=== PATIENT | male | born 1990 | race African-American/Black ===

== ENCOUNTER 2017-06-18 22:50 | Emergency (ER) | payer OTHER ==
[2017-06-18] MEDS: HYDROcodone/APAP 5/325MG 1 TAB TABLET PO ×2 (23:30)
[2017-06-19] MEDS: IPRATRPIUM/ALBUTEROL 0.5/2.5MG 3 ML NEBU. NEB ×2 (00:03)
[2017-06-19] MEDS: BENZONATATE 100 MG CAPSULE. PO ×2 (00:21)
[2017-06-19] MEDS: IBUPROFEN 800 MG TABLET. PO ×2 (00:22)
== END 2017-06-19 01:00 | disposition home or self-care (01) ==
LOC: ER 22:50
DX: M94.0 Chondrocostal junction syndrome [Tietze] (principal); J06.9 Acute upper respiratory infection, unspecified
CPT/HCPCS: 71045; 93005; 94640; 99284-25; J7620

== ENCOUNTER 2017-06-21 04:31 | Emergency (ER) | payer OTHER ==
[2017-06-21] MEDS: AZITHROMYCIN 250 MG TABLET. PO ×2 (05:02)
[2017-06-21] MEDS: predniSONE 20 MG TABLET PO ×2 (05:02)
[2017-06-21] MEDS: IPRATRPIUM/ALBUTEROL 0.5/2.5MG 3 ML NEBU. NEB ×2 (05:09)
== END 2017-06-21 05:30 | disposition home or self-care (01) ==
LOC: ER 04:31
DX: J40 Bronchitis, not specified as acute or chronic (principal)
CPT/HCPCS: 71046; 94640; 99284; J7512; J7620; Q0144

== ENCOUNTER 2017-06-25 13:50 | Emergency (ER) | payer OTHER ==
[2017-06-25] MEDS: IPRATRPIUM/ALBUTEROL 0.5/2.5MG 3 ML NEBU. NEB ×2 (16:25)
== END 2017-06-25 16:47 | disposition home or self-care (01) ==
LOC: ER 13:50
DX: J20.9 Acute bronchitis, unspecified (principal); K08.89 Other specified disorders of teeth and supporting structures
CPT/HCPCS: 71046; 94640; 99284; J7620

== ENCOUNTER 2018-02-25 21:32 | Emergency (ER) | payer OTHER ==
[~2018-02-25] VITALS: Ht 177.8 cm; Wt 90.7 kg
[~2018-02-25 21:32] MED LIST: AZIT250T PO; BENZ100C PO; FLUT9.9S NS; IBUP-1007 PO; PRED50TA PO; PROAIR HFA8.5 GM INH; VENTOLIN HFA18 GM INH
[2018-02-25] MEDS ORDERED: predniSONE 10 MG TABLET PO ONE (22:15)
[2018-02-25] MEDS ORDERED: IPRATRPIUM/ALBUTEROL 0.5/2.5MG 3 ML NEBU. NEB ONE (22:15)
--- NOTE | 2018-02-25 23:34 | RAD ---
PROCEDURE: CHEST PA LATERAL CLINICAL INDICATION: ANTERIOR CHEST PAIN X2 DAYS. PT RECENTLY DIAGNOSED WITH BRONCHITIS COMPARISON: 06/25/2017 FINDINGS: Heart is normal in size. Mild peribronchial wall thickening is seen. No focal consolidation. No pneumothorax or pleural effusion. Visualized bony thorax within normal limits. IMPRESSION: Findings of mild bronchitis. Electronically signed by: Wilver Milton DO (02/25/2018 11:31 PM) [facility]
[2018-02-25] MEDS ORDERED: PRED50TA PO (23:43)
--- NOTE | 2018-02-25 23:44 | PHYS DOC ---
Past Medical History Past Medical History: Bronchitis, Other Additional Past Medical Histor: DEVELOPMENTAL DELAY Past Surgical History: No Surgical History Alcohol Use: None Drug Use: None Adult General Chief Complaint Chief Complaint: CHEST PAIN HPI HPI Patient is a 27 year old male who presents with stating that he's had a cough for a while cannot give me exact time when asked and has mid chest pain and chest tightness, sinus congestion and a cough with mucus production but states he does not know a days. Patient denies any current fever. Patient states he is slightly short of air and seems very sleepy. Patient is easily arousable. Patient's vital signs are 94 heart rate, 100% on room air, 120/75, 14 respirations. Patient states he takes no medications daily and has no past medical history. Patient states he has no known drug allergies. Review of Systems Review of Systems Constitutional: Denies fever or chills [] Eyes: Denies change in visual acuity, redness, or eye pain [] HENT: Nasal congestion. Denies sore throat [] Respiratory: Cough or shortness of breath [] Cardiovascular: Mid chest pain GI: Denies abdominal pain, nausea, vomiting, bloody stools or diarrhea [] : Denies dysuria or hematuria [] Musculoskeletal: Denies back pain or joint pain [] Integument: Denies rash or skin lesions [] Neurologic: Denies headache, focal weakness or sensory changes [] Endocrine: Denies polyuria or polydipsia [] All other systems were reviewed and found to be within normal limits, except as documented in this note. Current Medications Current Medications Current Medications Medications (Trade) Dose Ordered Sig/Marie Start Time Stop Time Status Last Admin Dose Admin Albuterol/ Ipratropium (Duoneb) 3 ml 1X ONCE 02/25/18 22:15 02/25/18 22:16 DC 02/25/18 22:18 3 ML Prednisone (Prednisone) 50 mg 1X ONCE 02/25/18 22:15 02/25/18 22:16 DC 02/25/18 22:42 50 MG Allergies Allergies Allergies Coded Allergies Type Severity Reaction Last Updated Verified No Known Drug Allergies 03/03/16 No Physical Exam Physical Exam Constitutional: Well developed, well nourished, no acute distress, non-toxic appearance. [] HENT: Normocephalic, atraumatic, bilateral external ears normal, oropharynx moist, no oral exudates, nose normal. [] Eyes: PERRLA, EOMI, conjunctiva normal, no discharge. [] Neck: Normal range of motion, no tenderness, supple, no stridor. [] Cardiovascular:Heart rate regular rhythm, no murmur [] Lungs & Thorax: Bilateral upper breath sounds clear to auscultation, Lower lungs lobes diminished.[] Abdomen: Bowel sounds normal, soft, no tenderness, no masses, no pulsatile masses. [] Skin: Warm, dry, no erythema, no rash. [] Back: No tenderness, no CVA tenderness. [] Extremities: No tenderness, no cyanosis, no clubbing, ROM intact, no edema. [] Neurologic: Alert and oriented X 3, normal motor function, normal sensory function, no focal deficits noted. [] Psychologic: Affect normal, judgement normal, mood normal. [] Current Patient Data Vital Signs Vital Signs Date Time Temp Pulse Resp B/P (MAP) Pulse Ox O2 Delivery O2 Flow Rate FiO2 02/25/18 22:37 84 16 128/85 (99) 98 Room Air 02/25/18 21:34 97.7 97.7 EKG EKG [] Radiology/Procedures Radiology/Procedures Chest xray Impressions: No acute findings and read by Dr Jara Course & Med Decision Making Course & Med Decision Making Patient is a 27 year old male who presents with stating that he's had a cough for a while cannot give me exact time when asked and has mid chest pain and chest tightness, sinus congestion and a cough with mucus production but states he does not know a collar days. Patient denies any current fever. Patient states he is slightly short of air and seems very sleepy. Patient is easily arousable. Patient's vital signs are 94 heart rate, 100% on room air, 120/75, 14 respirations. Patient states he takes no medications daily and has no past medical history. Patient states he has no known drug allergies. He is neurologically intact and alert and oriented. Patient answers all questions appropriately and speaks in full clear sentences. Skin is pink warm and dry. He has no extremity edema and denies any nausea, vomiting, numbness or tingling, or diarrhea. Patient denied any sinus tenderness but does have sinus congestion. Patient does have postnasal drip. Throat is pink and without exudates. Ears tympanic bilaterally are pearly white. Chest x-ray shows no acute findings and was read by Dr Jara. Patient had a breathing treatment in the ED and prednisone states he is feeling better. We'll send patient home with a prescription for 4 more days of prednisone and follow-up with his primary care provider. Dragon Disclaimer Dragon Disclaimer This electronic medical record was generated, in whole or in part, using a voice recognition dictation system. Departure Departure Impression: Primary Impression: Cough Disposition: HOME, SELF-CARE Condition: STABLE Referrals: SHAE LIN MD (PCP) Patient Instructions: Cough, Adult Additional Instructions: Follow up with your primary care. Scripts Prednisone (PREDNISONE) 50 Mg Tablet 1 TAB PO DAILY, #4 TAB Prov: HUNTER CUNNINGHAM APRN 02/25/18 HUNTER CUNNINGHAM APRN Feb 25, 2018 23:44
[2018-02-26] VITALS: BP 138/66
--- NOTE | 2018-02-26 07:20 | EKG ---
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
== END 2018-02-26 00:05 | disposition home or self-care (01) ==
LOC: ER 21:32
DX: R05 Cough (principal)
CPT/HCPCS: 71046; 93005; 94640; 99284; J7512; J7620

== ENCOUNTER 2018-07-04 22:57 | Emergency (ER) | payer OTHER ==
[~2018-07-04] VITALS: Ht 172.7 cm; Wt 90.7 kg
[~2018-07-04 22:57] MED LIST changes: +ALBU2.5V8 INH; -PROAIR HFA8.5 GM INH
[2018-07-04] MEDS ORDERED: IV NORMAL SALINE 1000ML BAG 1,000 ML IV SCH (23:30)
[2018-07-04] MEDS ORDERED: ASPIRIN CHEWABLE 81 MG TABLET. PO ONE (23:45)
[2018-07-05 00:03] LABS: BASO # 0.1 x10^3/uL (0.0-0.2); BASO % 1 % (0-3); EOS # 0.3 x10^3/uL (0.0-0.7); EOS % 3 % (0-3); HEMATOCRIT 47.7 % (39.0-53.0); LYMPH # 1.8 x10^3/uL (1.0-4.8); LYMPH % 20 % (24-48); MEAN CORPUSCULAR HEMOGLOBIN 29 pg (25-35); MEAN CORPUSCULAR HGB CONC 34 g/dL (31-37); MEAN CORPUSCULAR VOLUME 86 fL (79-100); MONO # 1.1 x10^3/uL (0.0-1.1); MONO % 12 % (0-9); NEUT # 5.8 x10^3uL (1.8-7.7); NEUT % 64 % (31-73); PLATELET COUNT 161 x10^3/uL (140-400); RED BLOOD COUNT 5.54 x10^6/uL (4.30-5.70); RED CELL DISTRIBUTION WIDTH 14.7 % (11.5-14.5)
[2018-07-05 00:12] LABS: CREATININE 1.1 mg/dL (0.7-1.3); GFR 95.1; POTASSIUM 3.9 mmol/L (3.5-5.1)
[2018-07-05 00:18] LABS: ALBUMIN 3.7 g/dL (3.4-5.0); ALBUMIN/GLOBULIN RATIO 0.8 (1.0-1.7); MAGNESIUM 2.1 mg/dL (1.8-2.4); TOTAL BILIRUBIN 0.3 mg/dL (0.2-1.0); TOTAL PROTEIN 8.1 g/dL (6.4-8.2)
--- NOTE | 2018-07-05 00:26 | PHYS DOC ---
Past Medical History Past Medical History: Bronchitis, Other Additional Past Medical Histor: DEVELOPMENTAL DELAY Past Surgical History: No Surgical History Alcohol Use: None Drug Use: None Adult General Chief Complaint Chief Complaint: CHEST PAIN HPI HPI Patient is a 28-year-old male who presents with complaint of midsternal chest pain that started yesterday. Patient states that he had been out at [employer] and while there his pain had gotten much worse and so had called 911. Patient rates his pain to be an 8 out of 10 and describes pain as being sharp and stabbing in nature. He states the pain is worsened with deep breathing. He denies any nausea, vomiting or diaphoresis. He also denies any fever. He does indicate that he has had a cough that is been productive of clear sputum recently. Review of Systems Review of Systems Constitutional: Denies fever or chills [] Respiratory: Complains of cough without shortness of breath [] Cardiovascular: No additional information not addressed in HPI [] GI: Denies abdominal pain, nausea, vomiting or diarrhea [] Musculoskeletal: Denies back pain or joint pain [] Integument: Denies rash or skin lesions [] Neurologic: Denies headache, focal weakness or sensory changes [] All other systems were reviewed and found to be within normal limits, except as documented in this note. Current Medications Current Medications Current Medications Medications (Trade) Dose Ordered Sig/Marie Start Time Stop Time Status Last Admin Dose Admin Aspirin (Children'S Aspirin) 324 mg 1X ONCE 07/04/18 23:45 07/04/18 23:46 DC 07/05/18 00:03 324 MG Sodium Chloride 1,000 ml @ 1,000 mls/hr Q1H 07/04/18 23:30 07/05/18 00:29 DC 07/05/18 00:03 1,000 MLS/HR Allergies Allergies Allergies Coded Allergies Type Severity Reaction Last Updated Verified No Known Drug Allergies 03/03/16 No Physical Exam Physical Exam Constitutional: Well developed, well nourished, no acute distress, non-toxic appearance. [] HENT: Normocephalic, atraumatic, bilateral external ears normal, oropharynx moist, no oral exudates, nose normal. [] Eyes: PERRLA, EOMI, conjunctiva normal, no discharge. [] Neck: Normal range of motion, no tenderness, supple, no stridor. [] Cardiovascular: Regular rate and rhythm[] Lungs & Thorax: Bilateral breath sounds clear to auscultation [] Abdomen: Bowel sounds normal, soft, no tenderness. [] Skin: Warm, dry, no erythema, no rash. [] Extremities: No tenderness, no cyanosis, no clubbing, ROM intact, no edema. [] Neurologic: Alert and oriented X 3, no focal deficits noted. [] Current Patient Data Vital Signs Vital Signs Date Time Temp Pulse Resp B/P (MAP) Pulse Ox O2 Delivery O2 Flow Rate FiO2 07/04/18 22:57 98.4 82 20 137/84 (101) 98 Room Air 98.4 Lab Values Laboratory Tests Test 07/04/18 23:54 White Blood Count 9.0 x10^3/uL (4.0-11.0) Red Blood Count 5.54 x10^6/uL (4.30-5.70) Hemoglobin 16.0 g/dL (13.0-17.5) Hematocrit 47.7 % (39.0-53.0) Mean Corpuscular Volume 86 fL (79-100) Mean Corpuscular Hemoglobin 29 pg (25-35) Mean Corpuscular Hemoglobin Concent 34 g/dL (31-37) Red Cell Distribution Width 14.7 % (11.5-14.5) H Platelet Count 161 x10^3/uL (140-400) Neutrophils (%) (Auto) 64 % (31-73) Lymphocytes (%) (Auto) 20 % (24-48) L Monocytes (%) (Auto) 12 % (0-9) H Eosinophils (%) (Auto) 3 % (0-3) Basophils (%) (Auto) 1 % (0-3) Neutrophils # (Auto) 5.8 x10^3uL (1.8-7.7) Lymphocytes # (Auto) 1.8 x10^3/uL (1.0-4.8) Monocytes # (Auto) 1.1 x10^3/uL (0.0-1.1) Eosinophils # (Auto) 0.3 x10^3/uL (0.0-0.7) Basophils # (Auto) 0.1 x10^3/uL (0.0-0.2) D-Dimer (Alanis) < 0.27 ug/mlFEU Sodium Level 142 mmol/L (136-145) Potassium Level 3.9 mmol/L (3.5-5.1) Chloride Level 103 mmol/L (98-107) Carbon Dioxide Level 31 mmol/L (21-32) Anion Gap 8 (6-14) Blood Urea Nitrogen 16 mg/dL (8-26) Creatinine 1.1 mg/dL (0.7-1.3) Estimated GFR (Cockcroft-Gault) 95.1 BUN/Creatinine Ratio 15 (6-20) Glucose Level 95 mg/dL (70-99) Calcium Level 9.0 mg/dL (8.5-10.1) Magnesium Level 2.1 mg/dL (1.8-2.4) Total Bilirubin 0.3 mg/dL (0.2-1.0) Aspartate Amino Transferase (AST) 19 U/L (15-37) Alanine Aminotransferase (ALT) 24 U/L (16-63) Alkaline Phosphatase 69 U/L (46-116) Troponin I Quantitative < 0.017 ng/mL (0.000-0.055) DI-Bvb-E-Type Natriuretic Peptide 10 pg/mL (0-124) Total Protein 8.1 g/dL (6.4-8.2) Albumin 3.7 g/dL (3.4-5.0) Albumin/Globulin Ratio 0.8 (1.0-1.7) L Laboratory Tests 07/04/18 23:54 Laboratory Tests 07/04/18 23:54 EKG EKG [] Interpretation Time: EKG demonstrates normal sinus rhythm with no ST segment abnormalities. Radiology/Procedures Radiology/Procedures [] Impressions: Chest x-ray demonstrates no acute process. Course & Med Decision Making Course & Med Decision Making Pertinent Labs and Imaging studies reviewed. (See chart for details) [] Dragon Disclaimer Dragon Disclaimer This electronic medical record was generated, in whole or in part, using a voice recognition dictation system. Departure Departure Impression: Primary Impression: Bronchitis, acute Additional Impression: Costochondritis Disposition: 01 HOME, SELF-CARE Condition: STABLE Referrals: SHAE LIN MD (PCP) Patient Instructions: Acute Bronchitis, Costochondritis Scripts Ketorolac Tromethamine (KETOROLAC TROMETHAMINE) 10 Mg Tablet 1 TAB PO PRN Q6HRS PRN for PAIN, #20 TAB Prov: JOSELINE YOU Jr. DO 07/05/18 Azithromycin (ZITHROMAX) 250 Mg Tablet 1 PKG PO UD, #6 TAB Prov: JOSELINE YOU Jr. DO 07/05/18 Problem Qualifiers Primary Impression: Bronchitis, acute Bronchitis organism: unspecified organism Qualified Codes: J20.9 - Acute bronchitis, unspecified JOSELINE YOU Jr. DO Jul 05, 2018 00:26
[2018-07-05] MEDS ORDERED: KETO10TA PO (00:50)
[2018-07-05] MEDS ORDERED: AZIT250T PO (00:50)
[2018-07-05 01:00] VITALS: BP 132/76
--- NOTE | 2018-07-05 02:15 | RAD ---
EXAM: AP View of the chest DATE: 07/04/2018 11:16 PM INDICATION: CHEST PAIN COMPARISON: 06/25/2018, 02/25/2018 FINDINGS: The heart is not enlarged. Mediastinal and hilar contours are normal. No focal parenchymal airspace opacity. No pleural effusion or pneumothorax. IMPRESSION: 1. No radiographic evidence for acute cardiopulmonary process. Electronically signed by: Montana Bright MD (07/05/2018 2:12 AM) [facility]
--- NOTE | 2018-07-05 10:49 | EKG ---
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
== END 2018-07-05 01:12 | disposition home or self-care (01) ==
LOC: ER 22:57
DX: M94.0 Chondrocostal junction syndrome [Tietze] (principal); J20.9 Acute bronchitis, unspecified
CPT/HCPCS: 36415; 71045; 80053; 83735; 83880; 84484; 85025; 85379; 93005; 99284; J7030; 96360

== ENCOUNTER 2018-07-07 23:32 | Emergency (ER) | payer OTHER ==
[~2018-07-07] VITALS: Ht 172.7 cm; Wt 90.7 kg
[~2018-07-07 23:32] MED LIST changes: +KETO10TA PO
[2018-07-07 23:42] VITALS: BP 130/76
--- NOTE | 2018-07-07 23:54 | PHYS DOC ---
Past Medical History Past Medical History: Bronchitis, Other Additional Past Medical Histor: DEVELOPMENTAL DELAY Past Surgical History: No Surgical History Alcohol Use: None Drug Use: None Adult General Chief Complaint Chief Complaint: CHEST PAIN-CARDIAC NATURE HPI HPI Patient is a 28-year-old male who presents to the emergency department for evaluation. He states he has had a nonproductive cough for the past several days and is having anterior chest discomfort, worse with coughing and palpation. He denies any fevers or chills, dizziness or lightheadedness. He denies any pleuritic pain. He was seen in the emergency department 3 days ago for the same symptoms and had a workup which was largely unremarkable, including a chest x-ray and a d-dimer, which were negative. There are no alleviating or exacerbating factors to the patient's symptoms, except as noted above. Review of Systems Review of Systems Constitutional: Denies fever or chills [] Eyes: Denies change in visual acuity, redness, or eye pain [] HENT: Denies nasal congestion or sore throat [] Respiratory: Denies pleuritic pain or shortness of breath [] Cardiovascular: No additional information not addressed in HPI [] GI: Denies abdominal pain, nausea, vomiting, bloody stools or diarrhea [] : Denies dysuria or hematuria [] Musculoskeletal: Denies back pain or joint pain [] Integument: Denies rash or skin lesions [] Neurologic: Denies headache, focal weakness or sensory changes [] Endocrine: Denies polyuria or polydipsia [] All other systems were reviewed and found to be within normal limits, except as documented in this note. Current Medications Current Medications Current Medications Medications (Trade) Dose Ordered Sig/Marie Start Time Stop Time Status Last Admin Dose Admin Ketorolac Tromethamine (Toradol 30mg Vial) 30 mg 1X ONCE 07/08/18 00:30 07/08/18 00:31 DC 07/07/18 23:59 30 MG Allergies Allergies Allergies Coded Allergies Type Severity Reaction Last Updated Verified No Known Drug Allergies 03/03/16 No Physical Exam Physical Exam PHYSICAL EXAM: CONSTITUTIONAL: Well developed, well nourished HEAD: normocephalic, atraumatic EENT: PERRL, EOMI. Conjunctivae normal color, sclerae non-icteric; moist mucous membranes. NECK: Supple, non-tender; no meningismus. LUNGS: Lungs CTA, breathing even and unlabored. Normal air movement. HEART: Regular rate and rhythm, no murmur CHEST: No deformity; palpation of the anterior chest wall reproduces the patient 's pain ABDOMEN: The abdomen is soft, and non-tender, no masses or bruits. EXTREM: Normal ROM; no deformity, no calf tenderness. Normal pulses palpable in all extremities. There is no pedal edema. SKIN: No rash; no diaphoresis NEURO: Alert; normal speech, mildly delayed cognition consistent with developmental delay; CN's grossly intact; strength grossly intact without focal deficit. BACK: No CVA TTP. Current Patient Data Vital Signs Vital Signs Date Time Temp Pulse Resp B/P (MAP) Pulse Ox O2 Delivery O2 Flow Rate FiO2 07/07/18 23:42 97.8 79 14 130/76 (94) 98 Room Air 97.8 EKG EKG [Normal sinus rhythm with a normal rate, normal axis, normal intervals, there are no acute ischemic ST/T changes.] Radiology/Procedures Radiology/Procedures []ER physician preliminary chest x-ray interpretation: No acute disease. Course & Med Decision Making Course & Med Decision Making Pertinent diagnostic and Imaging studies reviewed. (See chart for details) [12:35 AM:Patient remains stable. I discussed test results, the need for close follow-up, and return precautions.] Dragon Disclaimer Dragon Disclaimer This electronic medical record was generated, in whole or in part, using a voice recognition dictation system. Departure Departure Impression: Primary Impression: Chest pain Additional Impression: Cough Disposition: 01 HOME, SELF-CARE Condition: STABLE Referrals: SHAE LIN MD (PCP) Patient Instructions: Chest Wall Pain, Cough, Adult, Musculoskeletal Pain Additional Instructions: Ibuprofen 400-600 mg every 6 hours. Problem Qualifiers PAUL ABDULLAHI MD Jul 07, 2018 23:54
[2018-07-08] MEDS ORDERED: KETOROLAC 30 MG/ML VIAL. IV ONE (00:30)
--- NOTE | 2018-07-08 01:15 | RAD ---
Two-view chest dated 07/08/2018. Comparison made to 07/04/2018. CLINICAL INDICATION: Chest pain. Cough. FINDINGS: PA and lateral views were obtained. Heart and mediastinal contours are stable. Lungs are clear without focal consolidation. Vascular interstitium within normal limits. No pleural effusion or pneumothorax. IMPRESSION: No acute radiographic abnormality. Electronically signed by: Ruy Fierro MD (07/08/2018 1:13 AM) [facility]
--- NOTE | 2018-07-08 07:19 | EKG ---
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
== END 2018-07-08 00:55 | disposition home or self-care (01) ==
LOC: ER 23:32
DX: R07.89 Other chest pain (principal); R05 Cough
CPT/HCPCS: 71046; 93005; 96374; 99283; J1885

== ENCOUNTER 2018-07-15 01:09 | Emergency (ER) | payer OTHER ==
[~2018-07-15] VITALS: Ht 172.7 cm; Wt 90.7 kg
[2018-07-15] MEDS ORDERED: ALBU2.5V8 INH (01:49)
[2018-07-15 02:00] VITALS: BP 137/82
[2018-07-15] MEDS ORDERED: ACETAMINOPHEN 500 MG TABLET PO ONE (02:00)
--- NOTE | 2018-07-15 05:02 | PHYS DOC ---
Past Medical History Past Medical History: Bronchitis, Other Additional Past Medical Histor: DEVELOPMENTAL DELAY Past Surgical History: No Surgical History Alcohol Use: None Drug Use: None Adult General Chief Complaint Chief Complaint: CHEST PAIN HPI HPI Patient is a 28 year old m who p/w chest pain seen twice in here twice already in the last week or so for the same complaint he says he has been coughing a lot he feels a sharp chest pain in the center of her chest when he coughs. Of note the patient does appear to have some level of developmental delay. Patient really is denying any shortness of breath he is wondering if he could may be still work he would like to keep working. has Review of Systems Review of Systems Constitutional: Denies fever or chills [] Eyes: Denies change in visual acuity, redness, or eye pain [] HENT: pos nasal congestion Musculoskeletal: Denies back pain or joint pain [] Integument: Denies rash or skin lesions [] Neurologic: Denies headache, focal weakness or sensory changes [] Endocrine: Denies polyuria or polydipsia [] All other systems were reviewed and found to be within normal limits, except as documented in this note. Current Medications Current Medications Current Medications Medications (Trade) Dose Ordered Sig/Marie Start Time Stop Time Status Last Admin Dose Admin Acetaminophen (Tylenol) 1,000 mg 1X ONCE 07/15/18 02:00 07/15/18 02:01 DC 07/15/18 02:12 1,000 MG Allergies Allergies Allergies Coded Allergies Type Severity Reaction Last Updated Verified No Known Drug Allergies 03/03/16 No Physical Exam Physical Exam Constitutional: Well developed, well nourished, no acute distress, non-toxic appearance. [] HENT: Normocephalic, atraumatic, bilateral external ears normal, oropharynx moist, no oral exudates, nose normal. [] Eyes: PERRLA, EOMI, conjunctiva normal, no discharge. [] Neck: Normal range of motion, no tenderness, supple, no stridor. [] Cardiovascular:Heart rate regular rhythm, no murmur [] Lungs & Thorax: Bilateral breath sounds clear to auscultation []chest wall tenderness is reproducible on the left chest wall border. Abdomen: Bowel sounds normal, soft, no tenderness, no masses, no pulsatile masses. [] Skin: Warm, dry, no erythema, no rash. [] Back: No tenderness, no CVA tenderness. [] Extremities: No tenderness, no cyanosis, no clubbing, ROM intact, no edema. [] Neurologic: Alert and oriented X 3, normal motor function, normal sensory function, no focal deficits noted. [] Psychologic: Affect normal, judgement normal, mood normal. [] Current Patient Data Vital Signs Vital Signs Date Time Temp Pulse Resp B/P (MAP) Pulse Ox O2 Delivery O2 Flow Rate FiO2 07/15/18 02:00 78 19 137/82 (100) 98 Room Air 07/15/18 01:12 98.1 98.1 EKG EKG []EKG shows a sinus rhythm rate of 77 no acute ischemic changes noted this is essentially normal EKG Radiology/Procedures Radiology/Procedures [] Course & Med Decision Making Course & Med Decision Making Pertinent Labs and Imaging studies reviewed. (See chart for details) []28-year-old male with developmental delay presenting with chest pain pleuritic reproducible associated with cough I suspect bronchitis patient has been here at least twice already in the last week has had negative workup negative EKG troponin d-dimer and chest x-ray some those tests were done more than once I think he is really having reproducible bronchitis symptoms prescription for albuterol was given reassurance was given I tried to explain the patient the diagnosis and the recent workup to the best of my ability he seemed to understand. Dragon Disclaimer Dragon Disclaimer This electronic medical record was generated, in whole or in part, using a voice recognition dictation system. Departure Departure Impression: Primary Impression: Bronchitis Disposition: 01 HOME, SELF-CARE Condition: STABLE Patient Instructions: Bronchitis, [id number] Scripts Albuterol Sulfate (PROAIR HFA INHALER) 8.5 Gm Hfa.aer.ad 1 PUFF INH PRN Q6HRS PRN for SHORTNESS OF BREATH, #1 INHALER 0 Refills Prov: DAVIS HUERTA MD 07/15/18 DAVIS HUERTA MD Jul 15, 2018 05:02
--- NOTE | 2018-07-15 13:12 | EKG ---
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
== END 2018-07-15 02:12 | disposition home or self-care (01) ==
LOC: ER 01:09
DX: J40 Bronchitis, not specified as acute or chronic (principal)
CPT/HCPCS: 93005; 99283

== ENCOUNTER 2018-07-31 23:03 | Emergency (ER) | payer OTHER ==
[~2018-07-31] VITALS: Ht 172.7 cm; Wt 90.7 kg
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
[2018-08-01] MEDS ORDERED: IBUPROFEN 200 MG TABLET. PO ONE (00:45)
[2018-08-01 01:13] VITALS: BP 152/90
--- NOTE | 2018-08-01 03:42 | RAD ---
AP and lateral chest radiographs 08/01/2018 CLINICAL HISTORY: Chest wall pain. Cough. AP and 2 lateral digital radiographs of the chest were obtained. Comparison study is dated 07/08/2018. The cardiac and mediastinal silhouettes are within normal limits in size and configuration. No pulmonary infiltrate is seen. No pleural effusion or pneumothorax is noted. The osseous structures are unchanged. IMPRESSION: No acute abnormality is seen. Electronically signed by: Nash Boles MD (08/01/2018 3:39 AM) [facility]
--- NOTE | 2018-08-01 03:58 | EKG ---
[facility] [address] [place] [address] Test Date: 2018-08-01 Test Time: 00:31:41 Pat Name: ERICA ARORA Department: Room: Gender: M Booky: : 1990 Requested By: ISIDRO DAVENPORT Order Number: [id number] Reading MD: Steven Glaser MD Measurements Intervals [place] Rate: 78 P: 60 MD: 144 QRS: 26 QRSD: 88 T: 12 QT: 374 QTc: 429 Interpretive Statements SINUS RHYTHM NON-SPECIFIC ST/T CHANGES Electronically Signed On 08-04-2018 22:01:37 CDT by Steven Glaser MD
== END 2018-08-01 01:32 | disposition home or self-care (01) ==
LOC: ER 23:03
DX: R07.89 Other chest pain (principal); R05 Cough; K30 Functional dyspepsia
CPT/HCPCS: 71046; 93005; 99283

== ENCOUNTER 2019-01-06 08:24 | Emergency (ER) | payer MEDICAID, OTHER ==
[~2019-01-06] VITALS: Ht 165.1 cm; Wt 90.7 kg
[2019-01-06 08:28] VITALS: BP 136/67
[2019-01-06] MEDS ORDERED: BENZ100C PO (08:47)
--- NOTE | 2019-01-06 08:48 | PHYS DOC ---
Past Medical History Past Medical History: Bronchitis, Other Additional Past Medical Histor: DEVELOPMENTAL DELAY (DESTIN TELLEZ APRN) Past Surgical History: No Surgical History (DESTIN TELLEZ APRN) Alcohol Use: None Drug Use: None (DESTIN TELLEZ APRN) Adult General Chief Complaint Chief Complaint: COUGH HPI HPI Patient is a 28 year old AA male who presents to the ER via EMS with complaints of a productive cough with clear sputum since last night. 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 He denies any pain at this time. ROS PT denies any fever, ear pain, sore throat, SOA, wheezing, headache, runny nose, nausea, vomiting, diarrhea, or abdominal pain. He denies any chest pain or palpitations. All other ROS is neg unless otherwise noted in HPI. (DESTIN TELLEZ APRN) Review of Systems Review of Systems See Above (DESTIN TELLEZ APRN) Allergies Allergies Allergies Coded Allergies Type Severity Reaction Last Updated Verified No Known Drug Allergies 03/03/16 No (DAVIS HUERTA MD) Physical Exam Physical Exam See Above Constitutional: Well developed, well nourished, no acute distress, non-toxic appearance. [] HENT: Normocephalic, atraumatic, bilateral external ears normal, bilateral TMs clear, posterior pharynx normal, oropharynx moist, no oral exudates, nose normal. [] Eyes: PERRLA, EOMI, conjunctiva normal, no discharge. [] Neck: Normal range of motion, no tenderness, supple, no stridor. [] Cardiovascular:Heart rate regular rhythm, no murmur [] Lungs & Thorax: Bilateral breath sounds clear to auscultation [] Skin: Warm, dry, no erythema, no rash. [] Back: No tenderness Extremities: No cyanosis, no clubbing, ROM intact, no edema. [] Neurologic: Alert and oriented X 3, no focal deficits noted. [] Psychologic: Affect normal, judgement normal, mood normal. [] (DESTIN TELLEZ APRN) Current Patient Data Vital Signs Vital Signs Date Time Temp Pulse Resp B/P (MAP) Pulse Ox O2 Delivery O2 Flow Rate FiO2 01/06/19 08:28 98.8 92 16 136/67 (90) 98 Room Air 98.8 (DAVIS HUERTA MD) EKG EKG [] (DESTIN TELLEZ APRN) Radiology/Procedures Radiology/Procedures [] (DESTIN TELLEZ APRN) Course & Med Decision Making Course & Med Decision Making Pertinent Labs and Imaging studies reviewed. (See chart for details) dx: Cough Physical exam is not concerning for pneumonia, strep pharyngitis, sinus infection, bronchitis, or other acute infectious process. Patient was prescribed Tessalon Perles to take as needed for cough. Follow-up with primary care doctor symptoms persist, return to the ER if symptoms worsen. Patient verbalized an understanding of home care, medications, follow-up, and return to ED instructions and was in agreement with the plan of care. [] (DESTIN TELLEZ APRN) Course & Med Decision Making Staff Physician Addendum: I was working in the ER during the course of this patient's visit. I was available for consultation as needed, but I was not directly involved in the care of this patient. (DAVIS HUERTA MD) Dragon Disclaimer Dragon Disclaimer This electronic medical record was generated, in whole or in part, using a voice recognition dictation system. (DESTIN TELLEZ APRN) Departure Departure Impression: Primary Impression: Cough Disposition: 01 HOME, SELF-CARE Condition: STABLE Referrals: SHAE LIN MD (PCP) Patient Instructions: Cough, Adult, [id number] Additional Instructions: Fill prescription(s) and use as directed. Alternate Tylenol or ibuprofen as needed for pain/fever. Increase clear fluids. Avoid airway triggers such as sm megan, fragrance, dust, and pollen. Follow-up with your primary care doctor if symptoms persist, return to the ER if symptoms worsen. Scripts Benzonatate (TESSALON PERLE) 100 Mg Capsule 1 CAP PO TID PRN for COUGH, #21 CAP 0 Refills Prov: DESTIN TELLEZ APRN 01/06/19 DESTIN TELLEZ APRN Jan 06, 2019 08:48 DAVIS HUERTA MD Jan 06, 2019 11:47
== END 2019-01-06 09:10 | disposition home or self-care (01) ==
LOC: ER 08:24
DX: R05 Cough (principal)
CPT/HCPCS: 99283

== ENCOUNTER 2019-03-06 22:14 | Emergency (ER) | payer MEDICAID ==
[~2019-03-06] VITALS: Ht 172.7 cm; Wt 90.7 kg
[2019-03-06 22:14] VITALS: BP 112/59
--- NOTE | 2019-03-06 22:22 | PHYS DOC ---
Past Medical History Past Medical History: Bronchitis, Other Additional Past Medical Histor: DEVELOPMENTAL DELAY Past Surgical History: No Surgical History Alcohol Use: None Drug Use: None Adult General Chief Complaint Chief Complaint: COUGH HPI HPI 28-year-old male presents to the emergency department via EMS with complaints of cough 2 weeks, chest pain 2 days. Worse with cough. Patient denies any shortness breath, nausea, vomiting, fever, does complain of productive cough. Patient denies abdominal pain. Nothing makes pain better. Patient denies tobacco/etoh/drug use Review of Systems Review of Systems Constitutional: Denies fever or chills [] HENT: Denies nasal congestion or sore throat [] Respiratory: cough (productive with yellow/clear) Cardiovascular: No additional information not addressed in HPI [] GI: Denies abdominal pain, nausea, vomiting, bloody stools or diarrhea [] Musculoskeletal: Denies back pain or joint pain [] Integument: Denies rash or skin lesions [] Neurologic: Denies headache, focal weakness or sensory changes [] All other systems were reviewed and found to be within normal limits, except as documented in this note. Current Medications Current Medications Current Medications Medications (Trade) Dose Ordered Sig/Marie Start Time Stop Time Status Last Admin Dose Admin Ketorolac Tromethamine (Toradol Im) 60 mg 1X ONCE 03/06/19 22:30 03/06/19 22:31 DC Allergies Allergies Allergies Coded Allergies Type Severity Reaction Last Updated Verified No Known Drug Allergies 03/03/16 No Physical Exam Physical Exam Constitutional: Well developed, well nourished, no acute distress, non-toxic appearance. [] HENT: Normocephalic, atraumatic, bilateral external ears normal, oropharynx moist, no oral exudates, nose normal. [] Eyes: PERRLA, EOMI, conjunctiva normal, no discharge. [] Cardiovascular:Heart rate regular rhythm, no murmur [] Lungs & Thorax: Bilateral breath sounds clear to auscultation [] Abdomen: Bowel sounds normal, soft, no tenderness, no masses, no pulsatile masses. [] Skin: Warm, dry, no erythema, no rash. [] Back: No tenderness, no CVA tenderness. [] Extremities: No tenderness, no edema. [] Neurologic: Alert and oriented X 3, no focal deficits noted. [] Psychologic: Affect normal, judgement normal, mood normal. [] EKG EKG EKG reviewed from EMS, sinus tachycardia, no evidence of ST elevation appreciated. Interactive time 2223[] Radiology/Procedures Radiology/Procedures Xray without evidence of acute consolidation - wet read 2311 by ER physician[] Course & Med Decision Making Course & Med Decision Making 28-year-old male presents to the emergency department via EMS with complaints of cough 2 weeks, chest pain 2 days. Worse with cough. Patient denies any shortness breath, nausea, vomiting, fever, does complain of productive cough. Patient denies abdominal pain. Nothing makes pain better. Patient denies tobacco/etoh/drug use Pertinent Labs and Imaging studies reviewed. (See chart for details) [] Dragon Disclaimer Dragon Disclaimer This electronic medical record was generated, in whole or in part, using a voice recognition dictation system. Departure Departure Impression: Primary Impression: Cough Additional Impressions: Chest pain Bronchitis Disposition: HOME, SELF-CARE Condition: STABLE Referrals: SHAE LIN MD (PCP) Patient Instructions: Chest Pain (Nonspecific), Cough, Adult, [id number] Additional Instructions: Recommend follow up with PCP 3 - 5 days Return to the ER with worsening symptoms, intractable pain, fever, altered mental status Tylenol/Motrin as needed for pain Take antibiotics as directed Scripts Doxycycline Hyclate (DOXYCYCLINE HYCLATE) 100 Mg Capsule 1 CAP PO BID, #14 CAP Prov: DELPHINE FORD MD 03/06/19 Diclofenac Sodium (DICLOFENAC SODIUM) 50 Mg Tablet.dr 1 TAB PO BID for 5 Days, #10 TAB 1 Refill Prov: DELPHINE FORD MD 03/06/19 Problem Qualifiers Additional Impressions: Chest pain Chest pain type: chest pain on breathing Qualified Codes: R07.1 - Chest pain on breathing DELPHINE FORD MD Mar 06, 2019 22:22
[2019-03-06] MEDS ORDERED: KETOROLAC 60 MG/2 ML VIAL. IM ONE (22:30)
[2019-03-06] MEDS ORDERED: DICL50TA4 PO (23:13)
[2019-03-06] MEDS ORDERED: DOXY100C2 PO (23:13)
--- NOTE | 2019-03-06 23:19 | RAD ---
Study: CHEST AP ONLY Indication: Cough. Chest pain. Comparison: 08/01/2018 Findings: Unremarkable cardiomediastinal silhouette and ondina. No lobar consolidation, pleural effusion or pneumothorax. Unremarkable osseous structures and upper abdomen. Impression: No acute radiographic abnormality of the chest. Electronically signed by: ISRAEL DAVALOS MD (03/06/2019 11:16 PM) [facility]
== END 2019-03-06 23:46 | disposition home or self-care (01) ==
LOC: ER 22:14
DX: J40 Bronchitis, not specified as acute or chronic (principal); R07.9 Chest pain, unspecified
CPT/HCPCS: 71045; 99283

== ENCOUNTER 2019-03-27 21:09 | Emergency (ER) | payer MEDICAID ==
[~2019-03-27] VITALS: Ht 165.1 cm; Wt 90.7 kg
[~2019-03-27 21:09] MED LIST changes: +DICL50TA4 PO; +DOXY100C2 PO
[2019-03-27 21:21] VITALS: BP 157/88
--- NOTE | 2019-03-27 21:32 | PHYS DOC ---
Past Medical History Past Medical History: Bronchitis, Other Additional Past Medical Histor: DEVELOPMENTAL DELAY (HUNTER CUNNINGHAM APRN) Past Surgical History: No Surgical History (HUNTER CUNNINGHAM APRN) Alcohol Use: None Drug Use: None (HUNTER CUNNINGHAM APRN) Attending Signature I have participated in the care of this patient and I have reviewed and agree with all pertinent clinical information above including history, exam, and recommendations. (DELPHINE FORD MD) Adult General Chief Complaint Chief Complaint: COUGH HPI HPI Patient is a 29 year old male who presents with sinus congestion and cough. Patient states it is a dry cough and coughing anything up. Patient states the cough started yesterday but he's had sinus congestion for the last 3 days. Patient states when he coughs is beginning to hurt his chest. Patient states he has been around others that have the same symptoms. Patient states he has cold chills but denies fever. (HUNTER CUNNINGHAM APRN) Review of Systems Review of Systems Constitutional: fever or chills [] HENT: nasal congestion or sore throat. Facial pain. [] Respiratory: cough or denies shortness of breath [] All other systems were reviewed and found to be within normal limits, except as documented in this note. (HUNTER CUNNINGHAM APRN) Allergies Allergies Allergies Coded Allergies Type Severity Reaction Last Updated Verified No Known Drug Allergies 03/03/16 No (DELPHINE FORD MD) Physical Exam Physical Exam Constitutional: Well developed, well nourished, no acute distress, non-toxic appearance. [] HENT: Normocephalic, atraumatic, bilateral external ears normal, oropharynx moist, no oral exudates, nose normal. Nasal congestion, throat reddened, maxillary sinus tenderness. [] Eyes: PERRLA, EOMI, conjunctiva normal, no discharge. [] Neck: Normal range of motion, no tenderness, supple, no stridor. [] Cardiovascular:Heart rate regular rhythm, no murmur [] Lungs & Thorax: Bilateral breath sounds clear to auscultation [] Abdomen: Bowel sounds normal, soft, no tenderness, no masses, no pulsatile masses. [] Skin: Warm, dry, no erythema, no rash. [] Neurologic: Alert and oriented X 3, normal motor function, normal sensory function, no focal deficits noted. [] Psychologic: Affect normal, judgement normal, mood normal. [] (HUNTER CUNNINGHAM APRN) Current Patient Data Vital Signs Vital Signs Date Time Temp Pulse Resp B/P (MAP) Pulse Ox O2 Delivery O2 Flow Rate FiO2 03/27/19 21:21 98.0 86 16 157/88 (111) 99 Room Air 98.0 (DELPHINE FORD MD) EKG EKG [] (HUNTER CUNNINGHAM APRN) Radiology/Procedures Radiology/Procedures [] (HUNTER CUNNINGHAM APRN) Course & Med Decision Making Course & Med Decision Making Alert and oriented. Lungs are clear to auscultation all lobes. Throat is reddened but no exudates or swelling. He has nasal congestion. Tympanic is pearly white. Ambulatory with a steady gait. Skin pink warm and dry. Mucous are membranes moist. Vital signs within normal limits. Speaks in full clear sentences. Abdomen is soft and nontender. Patient denies shortness of breath, dizziness, headache, abdominal pain, nausea, vomiting, diarrhea, visual changes. Patient rates his discomfort at a 3 out of 10. Patient does have maxillary sinus tenderness with palpation. (HUNTER CUNNINGHAM APRN) Dragon Disclaimer Dragon Disclaimer This electronic medical record was generated, in whole or in part, using a voice recognition dictation system. (HUNTER CUNNINGHAM APRN) Departure Departure Impression: Primary Impression: Sinusitis Additional Impression: Cough Disposition: 01 HOME, SELF-CARE Condition: STABLE Referrals: NO PCP (PCP) Patient Instructions: Cough, Adult, Sinusitis Additional Instructions: Follow-up with primary care provider. Take medication as prescribed. Drink plenty of fluids. Take ibuprofen or Tylenol to help with pain. Scripts Benzonatate (TESSALON PERLE) 100 Mg Capsule 1 CAP PO TID, #30 CAP Prov: HUNTER CUNNINGHAM APRN 03/27/19 Azithromycin (AZITHROMYCIN TABLET) 250 Mg Tablet 1 PKG PO UD for 5 Days, #6 TAB 0 Refills 2 the first day followed by 1 for days 2-5 Prov: HUNTER CUNNINGHAM APRN 03/27/19 Problem Qualifiers Primary Impression: Sinusitis Sinusitis location: maxillary Chronicity: acute Recurrence: non- recurrent Qualified Codes: J01.00 - Acute maxillary sinusitis, unspecified HUNTER CUNNINGHAM APRN Mar 27, 2019 21:32 DELPHINE FORD MD Mar 28, 2019 17:31
[2019-03-27] MEDS ORDERED: BENZ100C PO (21:37)
[2019-03-27] MEDS ORDERED: AZIT250T6 PO (21:37)
== END 2019-03-27 21:49 | disposition home or self-care (01) ==
LOC: ER 21:09
DX: J01.00 Acute maxillary sinusitis, unspecified (principal)
CPT/HCPCS: 99283

== ENCOUNTER 2019-04-13 18:17 | Emergency (ER) | payer MEDICAID ==
[~2019-04-13] VITALS: Ht 165.1 cm; Wt 90.7 kg
[2019-04-13 18:17] VITALS: BP 132/73
[~2019-04-13 18:17] MED LIST changes: +AZIT250T6 PO
--- NOTE | 2019-04-13 23:56 | PHYS DOC ---
Past Medical History Past Medical History: Bronchitis, Other Additional Past Medical Histor: DEVELOPMENTAL DELAY Past Surgical History: No Surgical History Alcohol Use: None Drug Use: None Adult General Chief Complaint Chief Complaint: COUGH HPI HPI Patient is a 29 year old history of developmental delay who presents with nonproductive cough with rhinorrhea since yesterday. No history of asthma. Denies wheezing. No fever chills, nausea vomiting or sweats. Patient was at work when he called the ambulance when symptoms began. [] Review of Systems Review of Systems Symptoms as per history of present illness. All other review symptoms are negative. All other systems were reviewed and found to be within normal limits, except as documented in this note. Allergies Allergies Allergies Coded Allergies Type Severity Reaction Last Updated Verified No Known Drug Allergies 03/03/16 No Physical Exam Physical Exam Constitutional: Well developed, well nourished, no acute distress, non-toxic appearance. [] HENT: Normocephalic, atraumatic, bilateral external ears normal, oropharynx moist, no oral exudates, nose normal. [] Eyes: PERRLA, EOMI, conjunctiva normal, no discharge. [] Neck: Normal range of motion, no tenderness, supple, no stridor. [] Cardiovascular:Heart rate regular rhythm, no murmur [] Lungs & Thorax: Bilateral breath sounds clear to auscultation [] Abdomen: Bowel sounds normal, soft. [] Skin: Warm, dry, no erythema, no rash. [] Back: No tenderness, no CVA tenderness. [] Extremities: No tenderness, no cyanosis, no clubbing, ROM intact, no edema. [] Neurologic: Alert and oriented X 3, normal motor function, normal sensory function, no focal deficits noted. [] Psychologic: Affect normal, judgement normal, mood normal. [] Current Patient Data Vital Signs Vital Signs Date Time Temp Pulse Resp B/P (MAP) Pulse Ox O2 Delivery O2 Flow Rate FiO2 04/13/19 18:17 97.4 80 16 132/73 (92) 100 Room Air 97.4 EKG EKG [] Radiology/Procedures Radiology/Procedures [] Course & Med Decision Making Course & Med Decision Making Pertinent Labs and Imaging studies reviewed. (See chart for details) [Patient reassured. Recommend the port of care and follow-up with PCP] Vel Disclaimer Vel Disclaimer This electronic medical record was generated, in whole or in part, using a voice recognition dictation system. Departure Departure Impression: Primary Impression: Acute viral bronchitis Disposition: HOME, SELF-CARE Condition: GOOD Patient Instructions: Bronchitis, [id number] Additional Instructions: Take Nyquil or benadryl for cough. Follow up with your PCP as needed ARMANDO OZUNA DO Apr 13, 2019 23:56
[2019-04-14] MEDS ORDERED: IBUP-1060 PO (07:10)
== END 2019-04-13 18:47 | disposition home or self-care (01) ==
LOC: ER 18:17
DX: J20.8 Acute bronchitis due to other specified organisms (principal)
CPT/HCPCS: 99283

== ENCOUNTER 2019-04-14 05:41 | Emergency (ER) | payer MEDICAID ==
[~2019-04-14] VITALS: Ht 165.1 cm; Wt 90.7 kg
[2019-04-14 05:55] VITALS: BP 148/76
--- NOTE | 2019-04-14 06:30 | PHYS DOC ---
Past Medical History Past Medical History: Bronchitis, Other Additional Past Medical Histor: DEVELOPMENTAL DELAY Past Surgical History: No Surgical History Alcohol Use: None Drug Use: None Adult General Chief Complaint Chief Complaint: MUSCLE SPASM/CRAMP [place] [employer] HPI Patient is a 29 year old male with history of developmental delay who presents with complaint of abdominal pain. Patient complaining of upper abdominal pain since 5 AM when he tried to move a trash can as a constant pain and rated his pain 5/10. Patient denies nausea, vomiting, diarrhea, constipation, urinary symptoms. He was seen in this emergency room last night with complaining of cough and diagnosed with viral bronchitis without given prescription. Patient has had frequent emergency room visits. Review of Systems Review of Systems Constitutional: Denies fever or chills [] Eyes: Denies change in visual acuity, redness, or eye pain [] HENT: Denies nasal congestion or sore throat [] Respiratory: Denies cough or shortness of breath [] Cardiovascular: No additional information not addressed in HPI [] GI: Reports abdominal pain, denies nausea, vomiting, bloody stools or diarrhea [] : Denies dysuria or hematuria [] Musculoskeletal: Denies back pain or joint pain [] Integument: Denies rash or skin lesions [] Neurologic: Denies headache, focal weakness or sensory changes [] Endocrine: Denies polyuria or polydipsia [] All other systems were reviewed and found to be within normal limits, except as documented in this note. Current Medications Current Medications Current Medications Medications (Trade) Dose Ordered Sig/[facility] Start Time Stop Time Status Last Admin Dose Admin Ibuprofen (Motrin) 800 mg 1X ONCE 04/14/19 07:00 04/14/19 07:01 DC 04/14/19 06:34 800 MG Allergies Allergies Allergies Coded Allergies Type Severity Reaction Last Updated Verified No Known Drug Allergies 03/03/16 No Physical Exam Physical Exam Constitutional: Well nourished, no acute distress, non-toxic appearance. [] HENT: Normocephalic, atraumatic, bilateral external ears normal, oropharynx moist. Eyes: PERRLA, EOMI, conjunctiva normal, no discharge. [] Neck: Normal range of motion, no tenderness, supple, no stridor. [] Cardiovascular:Heart rate regular rhythm, no murmur [] Lungs & Thorax: Bilateral breath sounds clear to auscultation [] Abdomen: Bowel sounds normal, soft, no tenderness, no masses, no pulsatile masses. [] Skin: Warm, dry, no erythema, no rash. [] Back: No tenderness, no CVA tenderness. [] Extremities: No tenderness, no cyanosis, no clubbing, ROM intact, no edema. [] Neurologic: Alert and oriented X 3, normal motor function, normal sensory function, no focal deficits noted. [] Psychologic: Affect normal, mood normal. [] Current Patient Data Vital Signs Vital Signs Date Time Temp Pulse Resp B/P (MAP) Pulse Ox O2 Delivery O2 Flow Rate FiO2 04/14/19 05:55 97.4 76 16 148/76 (100) 99 Room Air 97.4 EKG EKG [] Radiology/Procedures Radiology/Procedures [] Course & Med Decision Making Course & Med Decision Making Evaluation of patient in ER showed 29-year-old male patient with developmental delay brought in by his boss because of upper abdominal pain that started about 30 minutes prior to arrival to ER after lifting weights. Patient had unremarkable physical exam. Patient treated with ibuprofen with improvement of his pain. Plan discharge patient home to diagnose of muscle pain. Patient tolerated oral intake. Dragon Disclaimer Dragon Disclaimer This electronic medical record was generated, in whole or in part, using a voice recognition dictation system. Departure Departure Impression: Primary Impression: Muscle strain Disposition: 01 HOME, SELF-CARE (at [id number]) Condition: STABLE Referrals: NO PCP (PCP) Patient Instructions: Muscle Strain Additional Instructions: Drink plenty of liquids Follow-up with your primary care physician in 3-5 days Return to ER if not getting better Scripts Ibuprofen (IBUPROFEN) 800 Mg Tablet 800 MG PO PRN Q8HRS PRN for INFLAMMATION, #20 TAB Prov: GOMEZ WEATHERS MD 04/14/19 GOMEZ WEATHERS MD Apr 14, 2019 06:30
[2019-04-14] MEDS ORDERED: IBUPROFEN 400 MG TABLET. PO ONE (07:00)
[2019-04-14] MEDS ORDERED: IBUP-1060 PO (07:10)
== END 2019-04-14 07:40 | disposition home or self-care (01) ==
LOC: ER 05:41
DX: S39.011A Strain of muscle, fascia and tendon of abdomen, initial encounter (principal); X50.9XXA Other and unspecified overexertion or strenuous movements or postures, initial encounter; Y93.89 Activity, other specified; Y92.89 Other specified places as the place of occurrence of the external cause; Y99.8 Other external cause status
CPT/HCPCS: 99282

== ENCOUNTER 2019-04-24 19:43 | Emergency (ER) | payer MEDICAID ==
[~2019-04-24] VITALS: Ht 165.1 cm; Wt 90.7 kg
[~2019-04-24 19:43] MED LIST changes: +IBUP-1060 PO
[2019-04-24 20:30] VITALS: BP 142/82
[2019-04-24] MEDS ORDERED: DOXY100C2 PO (21:25)
--- NOTE | 2019-04-24 21:26 | PHYS DOC ---
Past Medical History Past Medical History: Bronchitis, Other Additional Past Medical Histor: DEVELOPMENTAL DELAY (ISIDRO ALBRIGHT APRN) Past Surgical History: No Surgical History (ISIDRO ALBRIGHT APRN) Alcohol Use: None Drug Use: None (ISIDRO ALBRIGHT APRN) Adult General Chief Complaint Chief Complaint: COUGH HPI HPI Patient is a 29 year old male who presents with cough this been ongoing since S unday. Patient also been having fever and chills. Denies any runny nose, congestion. (ISIDRO ALBRIGHT APRN) Review of Systems Review of Systems Constitutional: Reports fever or chills [] Eyes: Denies change in visual acuity, redness, or eye pain [] HENT: Denies nasal congestion or sore throat [] Respiratory: Reports cough. Cardiovascular: No additional information not addressed in HPI [] GI: Denies abdominal pain, nausea, vomiting, bloody stools or diarrhea [] : Denies dysuria or hematuria [] Musculoskeletal: Denies back pain or joint pain [] Integument: Denies rash or skin lesions [] Neurologic: Denies headache, focal weakness or sensory changes [] Endocrine: Denies polyuria or polydipsia [] Complete systems were reviewed and found to be within normal limits, except as documented in this note. (ISIDRO ALBRIGHT APRN) Allergies Allergies Allergies Coded Allergies Type Severity Reaction Last Updated Verified No Known Drug Allergies 03/03/16 No (ISIDRO DAVENPORT DO) Physical Exam Physical Exam Constitutional: Well developed, well nourished, no acute distress, non-toxic appearance. [] HENT: Normocephalic, atraumatic, bilateral external ears normal, oropharynx moist, no oral exudates, nose normal. [] Eyes: PERRLA, EOMI, conjunctiva normal, no discharge. [] Neck: Normal range of motion, no tenderness, supple, no stridor. [] Cardiovascular:Heart rate regular rhythm, no murmur [] Lungs & Thorax: Bilateral breath sounds have diminished lung sound and mild crackles in the right base. Skin: Warm, dry, no erythema, no rash. [] Neurologic: Alert and oriented X 3, normal motor function, normal sensory function, no focal deficits noted. [] Psychologic: Affect normal, judgement normal, mood normal. [] (ISIDRO ALBRIGHT APRN) Current Patient Data Vital Signs Vital Signs Date Time Temp Pulse Resp B/P (MAP) Pulse Ox O2 Delivery O2 Flow Rate FiO2 04/24/19 20:30 97.5 68 16 142/82 (102) 99 Room Air 97.5 (ISIDRO DAVENPORT DO) EKG EKG [] (ISIDRO ALBRIGHT APRN) Radiology/Procedures Radiology/Procedures [] (ISIDRO ALBRIGHT APRN) Course & Med Decision Making Course & Med Decision Making Pertinent Labs and Imaging studies reviewed. (See chart for details) Appears to have pneumonia. Will place on Doxycycline. (ISIDRO ALBRIGHT APRN) Dragon Disclaimer Dragon Disclaimer This electronic medical record was generated, in whole or in part, using a voice recognition dictation system. (ISIDRO ALBRIGHT APRN) Departure Departure Impression: Primary Impression: Pneumonia Disposition: 01 HOME, SELF-CARE Condition: STABLE Referrals: NO PCP (PCP) Patient Instructions: Pneumonia, Adult Additional Instructions: Thank you for visiting [facility]. We appreciate you trusting us with your care. If any additional problems come up don't hesitate to return to visit us. Please follow up with your primary care provider so they can plan additional care if needed and know about the problem that you had. If symptoms worsen come back to the Emergency Department. Any concerning symptoms that start such as chest pain, shortness of air, weakness or numbness on one side of the body, running high fevers or any other concerning symptoms return to the ER. You have been prescribed an antibiotic today to help fight your infection. Please take all of the antibiotic as directed. If after 48 hours the infection is not improving, please return for more care. If the infection worsens, return to ER for additional care. Scripts Doxycycline Hyclate (DOXYCYCLINE HYCLATE) 100 Mg Capsule 1 CAP PO BID for 7 Days, #14 CAP Prov: ISIDRO ALBRIGHT APRN 04/24/19 Attending Signature Attending Signature I have reviewed the PA/P 3 ARMAMENT/ORDNANCE IMA TECHNICIAN's note and plan of care. I was available for consultation as needed during the patient's visit in the emergency department. I agree with the clinical impression, plan, and disposition. (ISIDRO DAVENPORT DO) Problem Qualifiers Primary Impression: Pneumonia Pneumonia type: due to unspecified organism Laterality: right Lung location: lower lobe of lung Qualified Codes: J18.9 - Pneumonia, unspecified organism ISIDRO ALBRIGHT APRN Apr 24, 2019 21:26 ISIDRO DAVENPORT DO Apr 25, 2019 01:14
== END 2019-04-24 21:41 | disposition home or self-care (01) ==
LOC: ER 19:43
DX: J18.9 Pneumonia, unspecified organism (principal)
CPT/HCPCS: 99283

== ENCOUNTER 2019-05-07 02:05 | Emergency (ER) | payer MEDICAID ==
[~2019-05-07] VITALS: Ht 165.1 cm; Wt 90.7 kg
[2019-05-07 02:27] VITALS: BP 142/82
[2019-05-07] MEDS ORDERED: AMOX1TAB61 PO (03:26)
--- NOTE | 2019-05-07 03:26 | PHYS DOC ---
Past Medical History Past Medical History: Bronchitis, Other Additional Past Medical Histor: DEVELOPMENTAL DELAY Past Surgical History: No Surgical History Alcohol Use: None Drug Use: None Adult General Chief Complaint Chief Complaint: COUGH HPI HPI 29-year-old male presents to the emergency department with complaints of cough, right ear pain. Patient denies any fever, nausea, vomiting, chest pain, shortness breath, abdominal pain. Symptoms have been ongoing for a couple days. Worse tonight. The makes his symptoms worse, nothing makes his symptoms better. He denies taking [id number] medications All other ROS negative unless documented in HPI Review of Systems Review of Systems See Above Allergies Allergies Allergies Coded Allergies Type Severity Reaction Last Updated Verified No Known Drug Allergies 03/03/16 No Physical Exam Physical Exam See Above Constitutional: Well developed, well nourished, no acute distress, non-toxic appearance. [] HENT: Normocephalic, atraumatic, bilateral external ears normal, evidence of right OM - inflamed TM, oropharynx moist, no oral exudates, nose normal. [] Eyes: PERRLA, EOMI, conjunctiva normal, no discharge. [] Neck: Normal range of motion, no tenderness, supple, no stridor. [] Cardiovascular:Heart rate regular rhythm, no murmur [] Lungs & Thorax: Bilateral breath sounds clear to auscultation [] Abdomen: Bowel sounds normal, soft, no tenderness, no masses, no pulsatile masses. [] Skin: Warm, dry, no erythema, no rash. [] Neurologic: Alert and oriented X 3, no focal deficits noted. [] Psychologic: Affect normal, judgement normal, mood normal. [] Current Patient Data Vital Signs Vital Signs Date Time Temp Pulse Resp B/P (MAP) Pulse Ox O2 Delivery O2 Flow Rate FiO2 05/07/19 02:27 93 18 142/82 (102) 99 Room Air EKG EKG [] Radiology/Procedures Radiology/Procedures [] Course & Med Decision Making Course & Med Decision Making Pertinent Labs and Imaging studies reviewed. (See chart for details) []29-year-old male presents to the emergency department with complaints of cough, right ear pain. Patient denies any fever, nausea, vomiting, chest pain, shortness breath, abdominal pain. Symptoms have been ongoing for a couple days. Worse tonight. The makes his symptoms worse, nothing makes his symptoms better. He denies taking [id number] medications Dragon Disclaimer Dragon Disclaimer This electronic medical record was generated, in whole or in part, using a voice recognition dictation system. Departure Departure Impression: Primary Impression: Otitis media Disposition: 01 HOME, SELF-CARE Condition: STABLE Referrals: NO PCP (PCP) Patient Instructions: Otitis Media, Adult, [id number]-[id number] Additional Instructions: Recommend follow up with PCP 3 - 5 days Return to the ER with worsening symptoms, intractable pain, fever, altered mental status Tylenol/Motrin as needed for pain Take antibiotics as directed Scripts Amoxicillin/Potassium Clav (AUGMENTIN 875-125 TABLET) 1 Each Tablet 1 TAB PO Q12HR, #20 TAB Prov: DELPHINE FORD MD 05/07/19 Problem Qualifiers Primary Impression: Otitis media Otitis media type: unspecified Chronicity: acute Qualified Codes: H66.90 - Otitis media, unspecified, unspecified ear DEPLHINE FORD MD May 07, 2019 03:26
== END 2019-05-07 03:31 | disposition home or self-care (01) ==
LOC: ER 02:05
DX: H66.91 Otitis media, unspecified, right ear (principal); R05 Cough
CPT/HCPCS: 99283

== ENCOUNTER 2019-05-15 22:13 | Emergency (ER) | payer MEDICAID ==
[~2019-05-15] VITALS: Ht 165.1 cm; Wt 90.7 kg
[~2019-05-15 22:13] MED LIST changes: +AMOX1TAB61 PO
[2019-05-15 22:45] VITALS: BP 107/77
[2019-05-15] MEDS ORDERED: BENZ100C PO (23:58)
[2019-05-15] MEDS ORDERED: PRED50TA PO (23:58)
[2019-05-15] MEDS ORDERED: ALBU2.5V8 IH (23:58)
[2019-05-15] MEDS ORDERED: AMOX875T PO (23:58)
--- NOTE | 2019-05-15 23:58 | PHYS DOC ---
Past Medical History Past Medical History: Bronchitis, Other Additional Past Medical Histor: DEVELOPMENTAL DELAY (BRITNEY HODGE APRN) Past Surgical History: No Surgical History (BRITNEY HODGE APRN) Alcohol Use: None Drug Use: None (BRITNEY HODGE APRN) Attending Signature I have participated in the care of this patient and I have reviewed and agree with all pertinent clinical information above including history, exam, and recommendations. (DELPHINE FORD MD) Adult General Chief Complaint Chief Complaint: COUGH HPI HPI Patient is a 29 year old male who presents to the ED today complaining of a dry cough and left ear pain, symptoms began yesterday. Patient denies any fever. (BRITNEY HODGE APRN) Review of Systems Review of Systems Constitutional: Denies fever Eyes: Denies change in visual acuity, redness, or eye pain [] HENT: Reports left ear pain. Denies nasal congestion or sore throat [] Respiratory: Reports cough denies shortness of breath [] Cardiovascular: No additional information not addressed in HPI [] GI: Denies abdominal pain, nausea, vomiting, bloody stools or diarrhea [] : Denies dysuria or hematuria [] Musculoskeletal: Denies back pain or joint pain [] Integument: Denies rash or skin lesions [] Neurologic: Denies headache, focal weakness or sensory changes [] All other systems were reviewed and found to be within normal limits, except as documented in this note. (BRITNEY HODGE APRN) Allergies Allergies Allergies Coded Allergies Type Severity Reaction Last Updated Verified No Known Drug Allergies 03/03/16 No (DELPHINE FORD MD) Physical Exam Physical Exam Constitutional: Well developed, well nourished, no acute distress, non-toxic appearance. [] HENT: Normocephalic, atraumatic, bilateral external ears normal, oropharynx moist, no oral exudates, nose normal. [] Left TM is moderately injected. Eyes: PERRLA, EOMI, conjunctiva normal, no discharge. [] Neck: Normal range of motion, no tenderness, supple, no stridor. [] Cardiovascular:Heart rate regular rhythm, no murmur [] Lungs & Thorax: Bilateral breath sounds clear to auscultation [] Abdomen: Bowel sounds normal, soft, no tenderness, no masses, no pulsatile masses. [] Skin: Warm, dry, no erythema, no rash. [] Back: No tenderness, no CVA tenderness. [] Extremities: No tenderness, no cyanosis, no clubbing, ROM intact, no edema. [] Neurologic: Alert and oriented X 3, normal motor function, normal sensory function, no focal deficits noted. [] Psychologic: Affect normal, judgement normal, mood normal. [] (BRITNEY HODGE APRN) Current Patient Data Vital Signs Vital Signs Date Time Temp Pulse Resp B/P (MAP) Pulse Ox O2 Delivery O2 Flow Rate FiO2 05/15/19 22:45 98.4 74 12 107/77 (87) 96 Room Air 98.4 (DELPHINE FORD MD) EKG EKG [] (BRITNEY HODGE APRN) Radiology/Procedures Radiology/Procedures [] (BRITNEY HODGE APRN) Course & Med Decision Making Course & Med Decision Making Pertinent Labs and Imaging studies reviewed. (See chart for details) This is a 29-year-old male patient with bronchitis and left otitis media. Discharged with amoxicillin. Tylenol/Motrin for pain or fever. (BRITNEY HODGE APRN) Dragon Disclaimer Dragon Disclaimer This electronic medical record was generated, in whole or in part, using a voice recognition dictation system. (BRITNEY HODGE APRN) Departure Departure Impression: Primary Impression: Bronchitis, acute Additional Impression: Left otitis media Disposition: 01 HOME, SELF-CARE Condition: STABLE Referrals: NO PCP (PCP) follow up with your doctor in 1 week Patient Instructions: Acute Bronchitis, [id number], Otitis Media, Adult, [id number] Additional Instructions: You have ear infection and bronchitis. Take the prescribed medications as ordered. Follow-up with your doctor in 1-2 weeks Scripts Benzonatate (TESSALON PERLE) 100 Mg Capsule 1 CAP PO TID, #30 CAP Prov: BRITNEY HODGE APRN 05/15/19 Albuterol Sulfate (Proair Hfa) 8.5 Gm Hfa.aer.ad 2 PUFF IH PRN Q4-6HRS PRN for wheezing for 21 Days, #1 INHALER 0 Refills Prov: BRITNEY HODGE APRN 05/15/19 Amoxicillin (AMOXICILLIN) 875 Mg Tablet 1 TAB PO BID, #20 TAB Prov: BRITNEY HODGE APRN 05/15/19 Prednisone (PREDNISONE) 50 Mg Tablet 1 TAB PO DAILY, #5 TAB Prov: BRITNEY HODGE FLATWORK WASHER 05/15/19 Problem Qualifiers Primary Impression: Bronchitis, acute Bronchitis organism: unspecified organism Qualified Codes: J20.9 - Acute bronchitis, unspecified Additional Impression: Left otitis media Otitis media type: other nonsuppurative Chronicity: acute Recurrence: non-recurrent Qualified Codes: H65.192 - Other acute nonsuppurative otitis media, left ear BRITNEY HODGE FLATWORK WASHER May 15, 2019 23:58 DELPHINE FORD MD May 16, 2019 18:18
== END 2019-05-16 00:02 | disposition home or self-care (01) ==
LOC: ER 22:13
DX: J20.9 Acute bronchitis, unspecified (principal); H65.192 Other acute nonsuppurative otitis media, left ear
CPT/HCPCS: 99283